=== PATIENT | female | born 1965 | race Caucasian/White ===

== ENCOUNTER 2023-05-23 09:00 | Emergency (ER) | payer MEDICARE, OTHER ==
[~2023-05-23] VITALS: Ht 175.3 cm; Wt 79.4 kg
[~2023-05-23 09:00] MED LIST: ALPR1 PO; DIPH50 PO; ESCI10 PO; FAMO20 PO; FURO40 PO; IBUP200; IBUP800 PO; LASIX; LEVSOD25 PO; METH10 PO; OXYC10ER PO; OXYC5 PO; OXYCODONE; POTASSIUM; TIZA4 PO; WELLBUTRIN; [UNRECOGNIZED DRUG - OTHER]
[2023-05-23 10:29] LABS: BASOPHILS ABSOLUTE AUTO 0.02 K/mm3 (0.00-0.23); BASOPHILS PERCENT AUTO 0 % (0-2); EOSINOPHILS PERCENT AUTO 0 % (0-6); IMMATURE GRAN ABSOLUTE AUTO 0.04 K/mm3 (0.00-0.10); IMMATURE GRAN PERCENT AUTO 0 % (0-1); LYMPHOCYTES ABSOLUTE AUTO 0.78 K/mm3 (0.84-5.20); LYMPHOCYTES PERCENT AUTO 7 % (21-46); MONOCYTES ABSOLUTE AUTO 0.48 K/mm3 (0.16-1.47); MONOCYTES PERCENT AUTO 4 % (4-13); Mean Corpuscular HGB 30.5 pg (26.0-34.0); Mean Corpuscular Volume 90 fL (80-100); Mean Platelet Volume 9.5 fL (9.1-12.4); NEUTROPHILS ABSOLUTE AUTO 9.71 K/mm3 (1.96-9.15); NEUTROPHILS PERCENT AUTO 88 % (41-73); Platelet Count 400 K/mm3 (150-400); RDW Coefficient Variation 12.9 % (11.7-14.2); RDW Standard Deviation 42.2 fL (35.1-46.3); Red Blood Cell Count 5.57 M/mm3 (3.80-5.20); White Blood Cell Count 11.03 K/mm3 (4.00-11.30)
[2023-05-23] MEDS ORDERED: Oxycodone HCl20 M1 PO (10:43)
[2023-05-23] MEDS ORDERED: ARIPIPRAZOLE15 M3 PO (10:43)
[2023-05-23] MEDS ORDERED: ZOLPIDEM TARTRA10 MG PO (10:43)
[2023-05-23] MEDS ORDERED: ESTRADIOL1 M1 PO (10:44)
[2023-05-23] MEDS ORDERED: LISINOPRIL-HCT1 EAC1 PO (10:44)
[2023-05-23 10:46] LABS: Salicylate <1.7 mg/dL (2.8-20.0)
[2023-05-23 10:50] LABS: Alanine Aminotransfer (ALT/SGP 36 U/L (12-78); Albumin, Blood 4.7 g/dL (3.4-5.0); Alk Phos 51 U/L (50-136); Anion Gap 10 mmol/L (6-16); Aspartate Aminotrans (AST/SGOT 60 U/L (12-37); Bilirubin, Total 0.5 mg/dL (0.1-1.0); Blood Urea Nitrogen 27 mg/dL (8-24); Bun/Creatinine Ratio 23.1 (12.0-20.0); CO2, Blood 25 mmol/L (21-32); Chloride, Blood 108 mmol/L (98-108); Creatinine, Blood 1.17 mg/dL (0.40-1.00); Globulin, Blood 4.6 g/dL (2.2-4.0); Glomerular Filtration Rate 55 (60-); Glucose, Blood 121 mg/dL (70-99); Potassium, Blood 3.8 mmol/L (3.5-5.5); Sodium, Blood 143 mmol/L (136-145); Total Protein, Blood 9.3 g/dL (6.4-8.2)
[2023-05-23 10:51] LABS: Acetaminophen, Random <2.0 ug/mL (10.0-30.0); Ethanol (Alcohol), Blood, Med <3 mg/dL
[2023-05-23 12:00] VITALS: BP 180/101
[2023-05-23] MEDS ORDERED: NARCAN4 M1 (12:09)
[2023-05-23] MEDS ORDERED: ONDA4ODT MM (12:09)
== END 2023-05-23 12:54 | disposition home or self-care (01) ==
LOC: ER 09:00
PROVIDERS: Physician Assistant
DX: F11.20 Opioid dependence, uncomplicated (principal); E86.0 Dehydration
CPT/HCPCS: 80053; 85025; 96360; 96361; 99284-25; A9270; G0480; J7030

== ENCOUNTER 2023-05-28 12:28 | Inpatient (IN) | payer MEDICARE, OTHER ==
[~2023-05-28] VITALS: Ht 165.1 cm; Wt 76.0 kg
[~2023-05-28 12:28] MED LIST changes: +ARIPIPRAZOLE15 M3 PO; +ESTRADIOL1 M1 PO; +LISINOPRIL-HCT1 EAC1 PO; +NARCAN4 M1; +ONDA4ODT MM; +Oxycodone HCl20 M1 PO; +ZOLPIDEM TARTRA10 MG PO
[2023-05-28 13:27] LABS: BASOPHILS ABSOLUTE AUTO 0.02 K/mm3 (0.00-0.23); BASOPHILS PERCENT AUTO 0 % (0-2); EOSINOPHILS PERCENT AUTO 0 % (0-6); Hematocrit 47.8 % (33.0-51.0); Hemoglobin 16.5 g/dL (11.5-16.0); IMMATURE GRAN ABSOLUTE AUTO 0.11 K/mm3 (0.00-0.10); IMMATURE GRAN PERCENT AUTO 1 % (0-1); LYMPHOCYTES ABSOLUTE AUTO 1.35 K/mm3 (0.84-5.20); LYMPHOCYTES PERCENT AUTO 7 % (21-46); MONOCYTES ABSOLUTE AUTO 1.49 K/mm3 (0.16-1.47); MONOCYTES PERCENT AUTO 8 % (4-13); Mean Corpuscular HGB 31.7 pg (26.0-34.0); Mean Corpuscular HGB Conc 34.5 g/dL (31.5-36.5); Mean Corpuscular Volume 92 fL (80-100); Mean Platelet Volume 10.3 fL (9.1-12.4); NEUTROPHILS ABSOLUTE AUTO 15.91 K/mm3 (1.96-9.15); NEUTROPHILS PERCENT AUTO 84 % (41-73); Platelet Count 271 K/mm3 (150-400); RDW Coefficient Variation 13.5 % (11.7-14.2); RDW Standard Deviation 46.2 fL (35.1-46.3); White Blood Cell Count 18.88 K/mm3 (4.00-11.30)
[2023-05-28 13:43] LABS: Source, Urine Clean Catch
[2023-05-28 13:48] LABS: Appearance, Urine Cloudy (Clear); Bilirubin, Urine Neg (Neg); Blood, Urine 4+ (Neg); Color, Urine Yellow (P-Yellow); Glucose Qualitative, Urine Neg (Neg); Ketones, Urine Neg (Neg); Leukocyte Esterase, Urine 1+ (Neg); Nitrite, Urine Pos (Neg); Protein, Urine 2+ (Neg); Specific Gravity, Urine 1.025 (1.003-1.022); Urobilinogen, Urine NORM (Normal)
[2023-05-28 13:58] LABS: Amorphous Light (0-Heavy); Bacteria Many /hpf
[2023-05-28 13:59] LABS: Alanine Aminotransfer (ALT/SGP 139 U/L (12-78); Alk Phos 37 U/L (50-136); Anion Gap 6 mmol/L (6-16); Aspartate Aminotrans (AST/SGOT 240 U/L (12-37); Bilirubin, Total 0.6 mg/dL (0.1-1.0); Blood Urea Nitrogen 75 mg/dL (8-24); Bun/Creatinine Ratio 38.3 (12.0-20.0); CO2, Blood 26 mmol/L (21-32); Calcium, Blood 9.8 mg/dL (8.5-10.1); Chloride, Blood 118 mmol/L (98-108); Creatinine, Blood 1.96 mg/dL (0.40-1.00); Ethanol (Alcohol), Blood, Med <3 mg/dL; Globulin, Blood 4.2 g/dL (2.2-4.0); Glomerular Filtration Rate 29 (60-); Glucose, Blood 138 mg/dL (70-99); Potassium, Blood 4.4 mmol/L (3.5-5.5); Sodium, Blood 150 mmol/L (136-145); Total Protein, Blood 8.2 g/dL (6.4-8.2)
[2023-05-28 13:59] LABS: Squamous Epithelial Cells Few /hpf (Few)
[2023-05-28 14:01] LABS: U Amphetamine Screen Not Detected; U Barbituate Screen Not Detected; U Benzodiazapine Screen Not Detected; U Buprenorphine Screen Not Detected; U Cannabinoids Screen Not Detected; U Cocaine Screen Not Detected; U Methadone Screen Not Detected; U Methamphetamine Screen Not Detected; U Opiates Screen Not Detected; U Oxycodone Screen Not Detected; U Phencyclidine Screen Not Detected; U Propoxyphene Screen Not Detected
[2023-05-28 15:51] LABS: RBC Count, CSF 0 /mm3 (0-0); RBC Count, CSF 1 /mm3 (0-0); WBC Count, CSF 0 /mm3 (0-5); WBC Count, CSF 1 /mm3 (0-5)
[2023-05-28 15:52] LABS: Appearance, CSF Clear (Clear); Color, CSF No Color (No Color)
--- NOTE | 2023-05-28 16:23 | NUR ---
CALL TO ER FOR REPORT ON THIS PATIENT. NURSE NOT AVAILABLE WILL CALL BACK.
[2023-05-28 16:55] LABS: Cryptococcus Neoformans/Gattii Not Detected (NOT DETECT); Enterovirus Not Detected (NOT DETECT); Escherichia Coli K1 Not Detected (NOT DETECT); Haemophilus Influenza Not Detected (NOT DETECT); Herpes Simplex Virus 1 Not Detected (NOT DETECT); Herpes Simplex Virus 2 Not Detected (NOT DETECT); Human Herpesvirus 6 Not Detected (NOT DETECT); Human Parechovirus Not Detected (NOT DETECT); Listeria Monocytogenes Not Detected (NOT DETECT); Neisseria Meningitidis Not Detected (NOT DETECT); Streptococcus Agalactiae Not Detected (NOT DETECT); Streptococcus Pneumoniae Not Detected (NOT DETECT); Varicella Zoster Virus Not Detected (NOT DETECT)
[2023-05-28 17:15] VITALS: BP 174/100
[2023-05-28 17:35] LABS: Free Thyroxine 1.44 ng/dL (0.70-1.60)
[2023-05-28 17:38] LABS: Thyroid Stimulating Hormone 0.892 uIU/mL (0.360-4.800)
[2023-05-28 18:53] LABS: Anti-Xa UFH, PHA Monitoring <0.10 IU/mL; International Normalized Ratio 1.15
[2023-05-28 19:30] VITALS: BP 176/103
[2023-05-28 21:56] VITALS: BP 125/63
--- NOTE | 2023-05-28 23:06 | NUR ---
CALLED HOSPITALIST INFORMED HIM OF TROPONIN LEVEL TRENDING UP, 7 BEAT RUN OF VTACH, AND PRN APRESOLINE ADMINISTRATION FOR HTN. RECEIVED NEW PRN HTN MEDICATION ORDER, SEE EMAR.
[2023-05-29 02:23] VITALS: BP 155/80
[2023-05-29 02:23] LABS: Albumin, Blood 3.3 g/dL (3.4-5.0); Bilirubin, Total 0.5 mg/dL (0.1-1.0); Bun/Creatinine Ratio 42.1 (12.0-20.0); Calcium, Blood 8.8 mg/dL (8.5-10.1); Creatinine, Blood 1.45 mg/dL (0.40-1.00); Globulin, Blood 3.4 g/dL (2.2-4.0); Magnesium, Blood 2.8 mg/dL (1.6-2.4); Potassium, Blood 3.8 mmol/L (3.5-5.5); Total Protein, Blood 6.7 g/dL (6.4-8.2)
--- NOTE | 2023-05-29 04:07 | NUR ---
SHIFT SUMMARY ADMITTED FOR ACUTE ENCEPHALOPATHY/UTI. FULL CODE. PLAN IS FOR IV ANTIB RX, AND ST SWALLOW EVAL WHEN POSSIBLE. LUMBAR PUNCTURE RESULTS NEGATIVE. TOX SCREEN NEGATIVE. TELEMETRY: NSR @ 96 BPM. HEPARIN DRIP INFUSING - PHARMACY MANAGED. 07/20 NS INFUSING ORDERED. NA+ LAB IS NOW RISEN FROM 150 TO 153. SHE IS NON-VERBAL. SHE DOES NOT FOLLOW COMMANDS OR RESPOND. SHE DOES LOOK AT THE INTERVIEWER, BUT NOTHING MORE. TROPONIN HAS RISEN FROM [address] WE ARE Q2 TURNING HER, SHE IS BEDRIDDEN.
[2023-05-29 07:27] VITALS: BP 152/80
[2023-05-29 08:25] LABS: BASOPHILS ABSOLUTE AUTO 0.02 K/mm3 (0.00-0.23); BASOPHILS PERCENT AUTO 0 % (0-2); EOSINOPHILS PERCENT AUTO 0 % (0-6); Hematocrit 42.1 % (33.0-51.0); Hemoglobin 13.8 g/dL (11.5-16.0); IMMATURE GRAN ABSOLUTE AUTO 0.05 K/mm3 (0.00-0.10); IMMATURE GRAN PERCENT AUTO 0 % (0-1); LYMPHOCYTES ABSOLUTE AUTO 1.48 K/mm3 (0.84-5.20); LYMPHOCYTES PERCENT AUTO 11 % (21-46); MONOCYTES PERCENT AUTO 6 % (4-13); Mean Corpuscular HGB 30.6 pg (26.0-34.0); Mean Corpuscular HGB Conc 32.8 g/dL (31.5-36.5); Mean Corpuscular Volume 93 fL (80-100); Mean Platelet Volume 10.8 fL (9.1-12.4); NEUTROPHILS ABSOLUTE AUTO 10.82 K/mm3 (1.96-9.15); NEUTROPHILS PERCENT AUTO 82 % (41-73); Platelet Count 194 K/mm3 (150-400); RDW Coefficient Variation 13.8 % (11.7-14.2); RDW Standard Deviation 46.9 fL (35.1-46.3); Red Blood Cell Count 4.51 M/mm3 (3.80-5.20); White Blood Cell Count 13.17 K/mm3 (4.00-11.30)
[2023-05-29 09:31] LABS: Bun/Creatinine Ratio 44.8 (12.0-20.0); Calcium, Blood 8.9 mg/dL (8.5-10.1); Creatinine, Blood 1.34 mg/dL (0.40-1.00); Potassium, Blood 3.8 mmol/L (3.5-5.5)
[2023-05-29 12:33] VITALS: BP 157/88
[2023-05-29 16:15] VITALS: BP 161/88
--- NOTE | 2023-05-29 19:32 | NUR ---
SHIFT SUMMARY PT OPEN EYES SPONTANEOUSLY, APPEARS TO BE TRACKING SOMETIMES. ABLE TO WIGGLE TOES AND FINGERS BY COMMAND. SHAKE HEAD YES AND NO TO MOST QUESTIONS. SHOOK HEAD "NO" WHEN I ASKED IF SHE HAD ANY PAIN. S/O BROUGHT IN A FEW OF THE MEDICAITIONS THAT WERE LISTED ON MED REC. IT APPEARS THAT SHE HAS NOT BEEN TAKING MOST OF THE REVIEWED MEDICAITONS THE BOTTLE WERE FULL AND NOT REFILLED. S/O STATES THAT HE DOES NOT KNOW WHICH MEDS SHE TAKES REGULARLY. HE REPORTED WAKING MANY TIMES IN THE NIGHT TO FIND PT TAKING PILLS, BUT DID NOT KNOW WHAT OR HOW MUCH. HE STATED THAT HE IS GONE MOST OF THE DAY AND WOULD COME HOME AND FIND PILLS LAYING ON THE GROUND NEXT TO BED, BUT UNSURE OF WHAT PILLS THEY WERE. PT HAD MODERATE AMOUNTS OF FLEM INSIDE MOUTH. ABLE TO SUCTION SOME OUT BUT APPEARS SHE MAY NEED DEEP SUCTION. ORAL CARE PROVIDED. INCONT. BRIEF IN PLACE. PT IS UNABLE TO MAKE NEEDS KNOWN. BED IS IN THE LOWEST POSITION WITH CALL LIGHT IN REACH. BED ALARM ON.
[2023-05-29 19:55] VITALS: BP 151/84
--- NOTE | 2023-05-30 00:16 | NUR ---
PT NOTED TO BE TACHYPNIC AT 26. PT WAS ABLE TO SHAKE HER HEAD, NO, WHEN I ASKED IF SHE WAS IN PAIN. PATIENT SHOOK HER HEAD NO WHEN I ASKED IF SHE WAS HAVING TROUBLE BREATHING. DOES NOT APPEAR LABORED. LUNGS ARE CLEAR AND DIMINISHED IN BASES. PATIENT ON ROOM AIR SATTING ABOVE 92%. OCCASIONAL COUGH BUT NONE NOTED DURING THIS SHIFT SO FAR. SUCTION SET UP AT BEDSIDE. PATIENT APPEARS TO BE RESTING COMFORTABLY WITH HOB SLIGHTLY ELEVATAED. EYES OPEN TO VERBAL STIMULI. REPOSITIN Q2. NOT ABLE TO MAKE NEEDS KNOWN. BED ALARM ON. CALL LIGHT IN REACH
[2023-05-30 03:04] VITALS: BP 145/84
--- NOTE | 2023-05-30 04:06 | NUR ---
SHIFT SUMMARY OPENS EYES SPONTANEOUSLY. ROOM AIR. TACHYPNEA BUT UNLABORED. TAHCYCARDIA 90'S- LOW 100'1. NO FEVERS THIS SHIFT BUT SKIN IS CLAMMY AND FLUSHED TO FACE AND CHEST. HEELS FLOATED AND IN PINK FOAM. REPOSITIONING Q2. MEPILEX TO LEFT ELBOW. UNABLE TO MAKE NEEDS KNOWN. IF GIVEN ENOUGH TIME TO RESPOND CAN SHAKE HEAD NO TO YES/NO QUESTIONS. CAN WIGGLE TOES AND SQUEEZE FIST ON COMMAND. BED LOCKED IN LOW POSITION. BED ALARM ON. CALL LIGHT IN REACH. BILATERAL AC IV'S. DENIES PAIN/TROUBLE BREATHING.
[2023-05-30 06:21] LABS: BASOPHILS ABSOLUTE AUTO 0.01 K/mm3 (0.00-0.23); BASOPHILS PERCENT AUTO 0 % (0-2); EOSINOPHILS ABSOLUTE AUTO 0.01 K/mm3 (0.00-0.68); EOSINOPHILS PERCENT AUTO 0 % (0-6); Hematocrit 42.2 % (33.0-51.0); Hemoglobin 13.5 g/dL (11.5-16.0); IMMATURE GRAN ABSOLUTE AUTO 0.05 K/mm3 (0.00-0.10); IMMATURE GRAN PERCENT AUTO 0 % (0-1); LYMPHOCYTES ABSOLUTE AUTO 1.58 K/mm3 (0.84-5.20); LYMPHOCYTES PERCENT AUTO 13 % (21-46); MONOCYTES ABSOLUTE AUTO 0.62 K/mm3 (0.16-1.47); MONOCYTES PERCENT AUTO 5 % (4-13); Mean Corpuscular HGB 30.3 pg (26.0-34.0); Mean Corpuscular Volume 95 fL (80-100); Mean Platelet Volume 11.3 fL (9.1-12.4); NEUTROPHILS ABSOLUTE AUTO 9.67 K/mm3 (1.96-9.15); NEUTROPHILS PERCENT AUTO 81 % (41-73); Platelet Count 181 K/mm3 (150-400); RDW Coefficient Variation 13.9 % (11.7-14.2); Red Blood Cell Count 4.45 M/mm3 (3.80-5.20); White Blood Cell Count 11.94 K/mm3 (4.00-11.30)
[2023-05-30 06:57] LABS: Albumin, Blood 2.8 g/dL (3.4-5.0); Albumin/Globulin Ratio 0.8 (0.8-1.8); Bilirubin, Direct 0.1 mg/dL (0.0-0.3); Bilirubin, Indirect 0.3 mg/dL (0.1-0.7); Bilirubin, Total 0.4 mg/dL (0.1-1.0); Bun/Creatinine Ratio 40.5 (12.0-20.0); Calcium, Blood 8.6 mg/dL (8.5-10.1); Creatinine, Blood 1.11 mg/dL (0.40-1.00); Globulin, Blood 3.4 g/dL (2.2-4.0); Potassium, Blood 3.8 mmol/L (3.5-5.5); Total Protein, Blood 6.2 g/dL (6.4-8.2)
[2023-05-30 07:26] VITALS: BP 126/84
[2023-05-30 15:31] VITALS: BP 163/86
--- NOTE | 2023-05-30 19:17 | NUR ---
NO ACUTE CHANGES THIS SHIFT. PT CONTINUES TO BE NON VERBAL, ABLE TO WIGGLE FINGERS AND TOES ON COMMAND. SHE TRACKS STAFF AND CAN NOD YES/NO FOR SIMPLE QUESTIONS. SHE WAS LESS INTERACTIVE WITH ME THIS SHIFT THAN YESTERDAY. SHE APPEARS TO BE WITHDRAWN. PT TEARFUL WHEN S/O AT BEDSIDE. UNABLE TO MAKE NEEDS KNOWN. Q2HR POSITIONING. ORAL CARE WITH SUCTION PREFORMED Q4HR. PT NODDED "NO" WHEN ASKED IF SHE WAS IN PAIN.
[2023-05-30 19:53] VITALS: BP 173/93
[2023-05-30 20:30] VITALS: BP 158/95
[2023-05-31 04:04] VITALS: BP 165/94
[2023-05-31 05:44] LABS: BASOPHILS ABSOLUTE AUTO 0.01 K/mm3 (0.00-0.23); BASOPHILS PERCENT AUTO 0 % (0-2); EOSINOPHILS ABSOLUTE AUTO 0.06 K/mm3 (0.00-0.68); EOSINOPHILS PERCENT AUTO 1 % (0-6); Hematocrit 39.8 % (33.0-51.0); Hemoglobin 13.1 g/dL (11.5-16.0); IMMATURE GRAN ABSOLUTE AUTO 0.04 K/mm3 (0.00-0.10); IMMATURE GRAN PERCENT AUTO 0 % (0-1); LYMPHOCYTES ABSOLUTE AUTO 1.42 K/mm3 (0.84-5.20); LYMPHOCYTES PERCENT AUTO 14 % (21-46); MONOCYTES ABSOLUTE AUTO 0.54 K/mm3 (0.16-1.47); MONOCYTES PERCENT AUTO 5 % (4-13); Mean Corpuscular HGB 30.5 pg (26.0-34.0); Mean Corpuscular HGB Conc 32.9 g/dL (31.5-36.5); Mean Corpuscular Volume 93 fL (80-100); NEUTROPHILS ABSOLUTE AUTO 8.24 K/mm3 (1.96-9.15); NEUTROPHILS PERCENT AUTO 80 % (41-73); Platelet Count 149 K/mm3 (150-400); RDW Coefficient Variation 13.2 % (11.7-14.2); RDW Standard Deviation 44.7 fL (35.1-46.3); White Blood Cell Count 10.31 K/mm3 (4.00-11.30)
[2023-05-31 06:11] LABS: Albumin, Blood 2.7 g/dL (3.4-5.0); Albumin/Globulin Ratio 0.8 (0.8-1.8); Bilirubin, Direct 0.2 mg/dL (0.0-0.3); Bilirubin, Indirect 0.2 mg/dL (0.1-0.7); Bilirubin, Total 0.4 mg/dL (0.1-1.0); Bun/Creatinine Ratio 27.3 (12.0-20.0); Calcium, Blood 8.5 mg/dL (8.5-10.1); Creatinine, Blood 0.99 mg/dL (0.40-1.00); Globulin, Blood 3.2 g/dL (2.2-4.0); Phosphorus, Blood 3.2 mg/dL (2.5-4.9); Potassium, Blood 3.3 mmol/L (3.5-5.5); Total Protein, Blood 5.9 g/dL (6.4-8.2)
--- NOTE | 2023-05-31 06:32 | NUR ---
SHIFT SUMMARY ALERT, OPENS EYES SPONTANEOUSLY. ROOM AIR. TRACKS WITH EYES. ABLE TO WIGGLE TOES AND FLEX AND EXTEND FEET. ABLE TO SQUEEZE HANDS AND SLIGHTLY LIFT LEFT ARM OFF OF BED. THIS MORNING ORAL CARE WAS PROVIDED SHE SOUNDED VERY CONGESTED AND HAD A MUCUS PLUG TO BACK OF THROAT. SUCTION PROVIDED, I ASKED IF I COULD SUCTION HER ONE MORE TIME OR IF SHE NEEDED A BREAK AND SHE WAS ABLE TO WHISPER "BREAK" BACK TO ME. REPOSITIONING Q2 HOURS. INCONTINENT BOWEL/BLADDER BRIEF IN PLACE. BEDBOUND DUE TO CATATONIC STATE. D5 INFUSING, PATIENT NPO. WEAK COUGH. UNABLE TO MAKE NEEDS KNOWN. BED LOCKED IN LOW POSITION. BED RAILS UP X3. CALL LIGHT IN REACH. HEELS FLOATED AND IN PINK FOAM. DEPENDENT EDEMA
[2023-05-31 07:24] VITALS: BP 152/85
[2023-05-31 16:13] VITALS: BP 160/91
--- NOTE | 2023-05-31 16:51 | NUR ---
SHIFT SUMMARY PT REMAINS NONVERBAL T/O SHIFT. PT ABLE TO ANSWER SIMPLE QUESTIONS WITH THE SLIGHTEST HEAD NOD OR SHAKE. REMAINS NPO. PHILIPP NGT PLACED TODAY FOR FEEDING. FEEDINGS STARTED AT 1430 TODAY. PT DENIES ABD PAIN AND APPEARS TO BE TOLERATING FEEDS WELL SO FAR. IV FLUIDS DCED. TOUNGUE NOTICED TO BE VERY WHITE, CONCERN FOR THRUSH RELAYED TO DR. VELA. ORDER FOR DIFLUCAN PLACED. PT VOIDING WELL INCONTINENTLY. DENIES PAIN T/O SHIFT. EEG ORDERED BUT WILL BE COMPLETED TOMORROW AT 0500 PER ARABIC PROFESSORFELIPA LEMUS. PSYCH CONSULTED FOR CATATONIA. PLAN TO START ATIVAN Q8 AFTER EEG IS COMPLETED TO DETERMINE DIAGNOSIS PER PSYCH. NO OTHER ACUTE CHANGES IN ASSESSMENT AT THIS TIME. VS REVIEWED. Q2 REPOSITIONS. PT RESTING IN BED WITH FAMILY AT BEDSIDE CURRENTLY. FAMILY UPDATED ON PLAN OF CARE AT THIS TIME. CALL LIGHT IN REACH.
[2023-05-31 20:56] VITALS: BP 158/82
--- NOTE | 2023-06-01 04:40 | NUR ---
Shift Summary Pt mentation difficult to assess, she nods yes or no to most questions but won't answer some. She is unable to move except her eyes, head, and some movement in fingers/toes. She states no pain or nausea. Her lungs are wet sounding but she is unable to cough and refuses suction. Placed a purewick which is working well and keeping pt dry. Q2 turns. Dobhoff running feeding at 60ml/hr and flushing every 4 hours with 90ml water.
[2023-06-01 06:01] LABS: BASOPHILS ABSOLUTE AUTO 0.01 K/mm3 (0.00-0.23); BASOPHILS PERCENT AUTO 0 % (0-2); EOSINOPHILS PERCENT AUTO 1 % (0-6); Hematocrit 39.9 % (33.0-51.0); Hemoglobin 13.3 g/dL (11.5-16.0); IMMATURE GRAN ABSOLUTE AUTO 0.04 K/mm3 (0.00-0.10); IMMATURE GRAN PERCENT AUTO 0 % (0-1); LYMPHOCYTES ABSOLUTE AUTO 1.16 K/mm3 (0.84-5.20); LYMPHOCYTES PERCENT AUTO 12 % (21-46); MONOCYTES ABSOLUTE AUTO 0.55 K/mm3 (0.16-1.47); MONOCYTES PERCENT AUTO 6 % (4-13); Mean Corpuscular HGB 30.4 pg (26.0-34.0); Mean Corpuscular HGB Conc 33.3 g/dL (31.5-36.5); Mean Corpuscular Volume 91 fL (80-100); Mean Platelet Volume 11.4 fL (9.1-12.4); NEUTROPHILS ABSOLUTE AUTO 7.89 K/mm3 (1.96-9.15); NEUTROPHILS PERCENT AUTO 81 % (41-73); Platelet Count 164 K/mm3 (150-400); RDW Coefficient Variation 13.2 % (11.7-14.2); RDW Standard Deviation 44.3 fL (35.1-46.3); Red Blood Cell Count 4.37 M/mm3 (3.80-5.20); White Blood Cell Count 9.75 K/mm3 (4.00-11.30)
[2023-06-01 06:27] LABS: Albumin, Blood 2.6 g/dL (3.4-5.0); Anion Gap 5 mmol/L (6-16); Blood Urea Nitrogen 29 mg/dL (8-24); Bun/Creatinine Ratio 33.7 (12.0-20.0); CO2, Blood 26 mmol/L (21-32); Calcium, Blood 8.4 mg/dL (8.5-10.1); Chloride, Blood 112 mmol/L (98-108); Creatinine, Blood 0.86 mg/dL (0.40-1.00); Glomerular Filtration Rate 79 (60-); Glucose, Blood 124 mg/dL (70-99); Phosphorus, Blood 3.3 mg/dL (2.5-4.9); Potassium, Blood 3.6 mmol/L (3.5-5.5); Sodium, Blood 143 mmol/L (136-145)
[2023-06-01 07:29] VITALS: BP 167/82
--- NOTE | 2023-06-01 11:00 | NUR ---
IMPROVEMENT AFTER FIRST ATIVAN DOSE FIRST ATIVAN DOSE GIVEN THIS AM, APPROX AN HOUR AFTER PATIENT APPEARS TO HAVE IMPROVMENTS WITH EXTREMETY STRNEGTH. PT ABLE TO MOVE HER FEET AND BARBER STYLIST ARE STRONGER THAN EARLIER THIS AM. PT IS TRACKING WITH EYE AND MOVING HER HEAD EASIER AND FASTER THAN BEFORE. PT HAS SINCE ALSO SAID "YEAH" AND "MAYBE" VERY CLEARLY. SECOND DOSE OF ATIVEN JUST GIVEN.
[2023-06-01 16:05] VITALS: BP 141/83
--- NOTE | 2023-06-01 18:09 | NUR ---
SHIFT SUMMARY PT RESPONDING WELL TO THE IM ATIVAN. SEE PREVIOUS NOTES. PT VERBALIZING BETTER, ABLE TO TELL ME HER BOYFRIENDS NAME WHEN ASKED WHO HE WAS. PT ABLE TO LIFT ARMS SLIGHTLY AND MOVE HANDS AROUND BETTER WITH MEANING. PT REFUSING ORAL CARE T/O DAY AFTER MULTIPLE ATTEMPTS. TOLERATING CONTINUOUS FEEDS THROUGH DOBHOFF. NO OTHER ACUTE CHANGES IN ASSESSMENT AT THIS TIME. VS REVIEWED. CALL LIGHT IN REACH. REPOSITIONING Q2 HOURS. PURE WIK IN PLACE AND WORKING WELL. PT HAD A SMEAR OF BM TODAY. NO SUBSTANCIAL BM YET.
[2023-06-01 19:48] VITALS: BP 139/76
[2023-06-02] MEDS ORDERED: OMEP20ER PO (00:16)
[2023-06-02 03:16] VITALS: BP 128/70
--- NOTE | 2023-06-02 05:23 | NUR ---
Shift Summary Pt rcving Q6 scheduled IM Ativan. She has more muscle tone than last night and is able to provide one word answers at time. She is lethargic and somnolent, sleeping well t/o the the night. Purewick in place with good urine output. Pt states no pain or nausea. Rcving nutrition through dobhoff tube at 60ml/hr. Pt did try to get out of bed at one point during the night and had to be reminded that she is extremely weak and cannot walk at this time.
[2023-06-02 07:28] VITALS: BP 134/86
[2023-06-02 07:34] LABS: Alanine Aminotransfer (ALT/SGP 109 U/L (12-78); Albumin, Blood 2.7 g/dL (3.4-5.0); Albumin/Globulin Ratio 0.8 (0.8-1.8); Alk Phos 34 U/L (50-136); Anion Gap 6 mmol/L (6-16); Aspartate Aminotrans (AST/SGOT 83 U/L (12-37); Bilirubin, Direct <0.1 mg/dL (0.0-0.3); Bilirubin, Indirect Unable to Calculate mg/dL (0.1-0.7); Bilirubin, Total 0.2 mg/dL (0.1-1.0); Blood Urea Nitrogen 27 mg/dL (8-24); Bun/Creatinine Ratio 36.7 (12.0-20.0); CO2, Blood 27 mmol/L (21-32); Calcium, Blood 8.7 mg/dL (8.5-10.1); Chloride, Blood 104 mmol/L (98-108); Creatinine, Blood 0.74 mg/dL (0.40-1.00); Globulin, Blood 3.6 g/dL (2.2-4.0); Glomerular Filtration Rate 95 (60-); Glucose, Blood 132 mg/dL (70-99); Phosphorus, Blood 3.3 mg/dL (2.5-4.9); Potassium, Blood 3.8 mmol/L (3.5-5.5); Sodium, Blood 137 mmol/L (136-145); Total Protein, Blood 6.3 g/dL (6.4-8.2)
[2023-06-02 11:21] VITALS: BP 135/82
--- NOTE | 2023-06-02 17:36 | NUR ---
SHIFT SUMMARY- PT WAS UNRESPONSIVE AND LETHARGIC THIS MORNING. SHE IS RECIEVING IM ATIVAN Q6 TO TREAT SUSPECTED CATITONIA. FREQUENCY WAS CHANGED TO Q8 TODAY. PT EYES WERE OPEN FOR A BIT AROUND 1600. PT WAS ABLE, AT THAT TIME TO ATTEMPT TO SQUEEZE FINGERS, HER EYES WERE TRACKING AND SHE WAS ABLE TO FOLLOW DIRECTIONS TO LOOK IN A SET DIRECTION AND NOT AT THE LIGHT. PUPIL RESPONSE WAS BRISK AT THIS TIME. PT WAS ABLE TO GIVE A SLIGHT HEAD NOD IN THE AFFIRMATIVE WHEN ASKED A QUESTION. THIS IS A COMPLETE CHANGE FROM EARLIER IN THE DAY. IV ATIVAN WAS GIVEN AT 1700. PT SITTING UP IN BED, CALL LIGHT IN REACH, THOUGH THE PT IS UNABLE TO CALL. FAMILY HAS BEEN AT THE BEDSIDE OFF AND ON T/O THE DAY. CURRENTLY THEY ARE AT THE BEDSIDE.
[2023-06-02 20:40] VITALS: BP 113/74
--- NOTE | 2023-06-03 04:21 | NUR ---
SHIFT SUMMARY ADMITTED FOR ACUTE ENCEPHALITIS. FULL CODE. PALLIATIVE CARE CONSULT. CONTINUOUS DOBHOFF FEEDING. IV ANTIB RX ARE SCHEDULED. SHE IS UNRESPONSIVE, ALTHOUGH SHE WILL LOOK AT THE INTERVIEWER AND SQUEEZE YOUR HAND WHEN PROMPTED. PUREWICK IN PLACE. TELEMETRY: NSR @ 95 BPM. SHE IS ON RA. PSYCHOLOGY CONSULT IS DR. SALAZAR. HX OF ALCOHOL AND PILL ABUSE. IM ATIVAN IS SCHEDULED, SEE EMAR AND PHYSICIAN'S REPORT.
[2023-06-03 05:38] LABS: BASOPHILS ABSOLUTE AUTO 0.01 K/mm3 (0.00-0.23); BASOPHILS PERCENT AUTO 0 % (0-2); EOSINOPHILS ABSOLUTE AUTO 0.08 K/mm3 (0.00-0.68); EOSINOPHILS PERCENT AUTO 1 % (0-6); Hematocrit 40.5 % (33.0-51.0); Hemoglobin 13.6 g/dL (11.5-16.0); IMMATURE GRAN ABSOLUTE AUTO 0.08 K/mm3 (0.00-0.10); IMMATURE GRAN PERCENT AUTO 1 % (0-1); LYMPHOCYTES ABSOLUTE AUTO 1.33 K/mm3 (0.84-5.20); LYMPHOCYTES PERCENT AUTO 12 % (21-46); MONOCYTES ABSOLUTE AUTO 0.79 K/mm3 (0.16-1.47); MONOCYTES PERCENT AUTO 7 % (4-13); Mean Corpuscular HGB 30.7 pg (26.0-34.0); Mean Corpuscular HGB Conc 33.6 g/dL (31.5-36.5); Mean Corpuscular Volume 91 fL (80-100); Mean Platelet Volume 10.8 fL (9.1-12.4); NEUTROPHILS ABSOLUTE AUTO 9.11 K/mm3 (1.96-9.15); NEUTROPHILS PERCENT AUTO 80 % (41-73); Platelet Count 259 K/mm3 (150-400); RDW Coefficient Variation 13.2 % (11.7-14.2); RDW Standard Deviation 44.1 fL (35.1-46.3); Red Blood Cell Count 4.43 M/mm3 (3.80-5.20)
[2023-06-03 06:24] VITALS: BP 129/80
[2023-06-03 06:28] LABS: Albumin, Blood 2.9 g/dL (3.4-5.0); Albumin/Globulin Ratio 0.8 (0.8-1.8); Bilirubin, Total 0.2 mg/dL (0.1-1.0); Bun/Creatinine Ratio 43.3 (12.0-20.0); Calcium, Blood 9.1 mg/dL (8.5-10.1); Creatinine, Blood 0.72 mg/dL (0.40-1.00); Globulin, Blood 3.7 g/dL (2.2-4.0); Potassium, Blood 3.8 mmol/L (3.5-5.5); Total Protein, Blood 6.6 g/dL (6.4-8.2)
[2023-06-03 07:22] VITALS: BP 128/89
--- NOTE | 2023-06-03 15:44 | NUR ---
SHIFT SUMMARY- PT ALERT TODAY OFF AND ON. NON-VERBAL BUT ABLE TO NOD AND SHAKE HER HEAD. HER STORE RECEIVING CLERK ARE WEAK BUT SHE IS ABLE TO MIRROR SILVERER WITH BOTH HANDS. FREQUENT REPOSITIONING TO PREVENT SKIN BREAKDOWN. CHANGED SOME ORDERS. PT PLACED ON STEROID TREATMENT TODAY, BG CHECKS ORDERED Q6 WITH INSULIN COVERAGE IF NEEDED. DOBHOFF IN PLACE CONTINUIOUS TUBE FEEDING AT 60ML/HR WITH A Q4H FLUSH OF 95ML. MEDS ARE BEING ADMINISTERED THROUGH IT. IV IN THE RIGHT WRIST IS PATENT AND SL AT THIS TIME. PT IN BED, CALL LIGHT I REACH NO S&S OF DISTRESS AT THIS TIME. WILL CTM AND PASS ON TO NIGHT RN IN BEDSIDE REPORT.
[2023-06-03 16:12] VITALS: BP 128/65
[2023-06-03 21:16] VITALS: BP 138/81
[2023-06-04 02:19] VITALS: BP 142/81
--- NOTE | 2023-06-04 04:15 | NUR ---
SHIFT SUMMARY ADMITTED FOR ENCEPHALITIS. FULL CODE. IV ANTIB RX ARE SCHEDULED, ARE STEROID INFUSIONS. UNCERTAIN OF CAUSE OF AMS. CONTINUOUS TUBE FEEDING IN PLACE VIA DOBHOFF. IM ATIVAN IS SCHEDULED. PSYCH CONSULT IS DR. SALAZAR. TELEMETRY: NSR @ [address] NO CHANGE IN MENTATION THIS SHIFT. SHE CAN SQUEEZE YOUR HAND AND MOVE HER ARMS. SHE CAN TRACK YOU WITH HER EYES AND NOD OR SHAKE HER HEAD. HX OF ALCOHOL & PRESCRIPTION/NON-PRESCRIPTION OVERUSE. Q6 CBG'S.
[2023-06-04 05:45] LABS: BASOPHILS ABSOLUTE AUTO 0.01 K/mm3 (0.00-0.23); BASOPHILS PERCENT AUTO 0 % (0-2); EOSINOPHILS PERCENT AUTO 0 % (0-6); Hematocrit 40.9 % (33.0-51.0); IMMATURE GRAN ABSOLUTE AUTO 0.08 K/mm3 (0.00-0.10); IMMATURE GRAN PERCENT AUTO 1 % (0-1); LYMPHOCYTES ABSOLUTE AUTO 0.57 K/mm3 (0.84-5.20); LYMPHOCYTES PERCENT AUTO 5 % (21-46); MONOCYTES ABSOLUTE AUTO 0.26 K/mm3 (0.16-1.47); MONOCYTES PERCENT AUTO 2 % (4-13); Mean Corpuscular HGB 30.7 pg (26.0-34.0); Mean Corpuscular HGB Conc 34.2 g/dL (31.5-36.5); Mean Corpuscular Volume 90 fL (80-100); Mean Platelet Volume 10.5 fL (9.1-12.4); NEUTROPHILS ABSOLUTE AUTO 11.12 K/mm3 (1.96-9.15); NEUTROPHILS PERCENT AUTO 92 % (41-73); Platelet Count 292 K/mm3 (150-400); RDW Coefficient Variation 12.9 % (11.7-14.2); RDW Standard Deviation 42.1 fL (35.1-46.3); Red Blood Cell Count 4.56 M/mm3 (3.80-5.20); White Blood Cell Count 12.04 K/mm3 (4.00-11.30)
[2023-06-04 06:07] LABS: Albumin, Blood 2.8 g/dL (3.4-5.0); Albumin/Globulin Ratio 0.7 (0.8-1.8); Bilirubin, Total 0.3 mg/dL (0.1-1.0); Bun/Creatinine Ratio 47.9 (12.0-20.0); Calcium, Blood 9.3 mg/dL (8.5-10.1); Creatinine, Blood 0.77 mg/dL (0.40-1.00); Globulin, Blood 4.3 g/dL (2.2-4.0); Potassium, Blood 4.3 mmol/L (3.5-5.5); Total Protein, Blood 7.1 g/dL (6.4-8.2)
[2023-06-04 07:32] VITALS: BP 137/89
[2023-06-04 15:01] VITALS: BP 134/73
--- NOTE | 2023-06-04 17:16 | NUR ---
PT IS ALERT. OPENS EYES TO VERAL STIMULI, PT REMAINS NON VERBAL BUT DOES SHAKE HER HEAD YES AND NO. PT IS ABLE TO MASTER MECHANIC AND MOVE HER LEGS SLIGHTLY ON COMMAND. PT IS TOLERATING CONTINUOS TUBE FEED AT GOAL RATE OF 60 ML/HR. PT WAS REPOSTIONED T/O THE DAY AND GIVEN A BED BATH TODAY. PTS HAS BEEN IN TO SEE HER. CALL LIGHT IN REACH BED IN THE LOW POSITION
[2023-06-04 20:15] VITALS: BP 138/77
[2023-06-05 03:52] VITALS: BP 140/77
[2023-06-05 05:49] LABS: BASOPHILS ABSOLUTE AUTO 0.01 K/mm3 (0.00-0.23); BASOPHILS PERCENT AUTO 0 % (0-2); EOSINOPHILS PERCENT AUTO 0 % (0-6); Hemoglobin 13.1 g/dL (11.5-16.0); IMMATURE GRAN PERCENT AUTO 1 % (0-1); LYMPHOCYTES ABSOLUTE AUTO 0.91 K/mm3 (0.84-5.20); LYMPHOCYTES PERCENT AUTO 6 % (21-46); MONOCYTES ABSOLUTE AUTO 1.16 K/mm3 (0.16-1.47); MONOCYTES PERCENT AUTO 7 % (4-13); Mean Corpuscular HGB Conc 34.5 g/dL (31.5-36.5); Mean Corpuscular Volume 90 fL (80-100); NEUTROPHILS ABSOLUTE AUTO 13.86 K/mm3 (1.96-9.15); NEUTROPHILS PERCENT AUTO 86 % (41-73); Platelet Count 373 K/mm3 (150-400); RDW Coefficient Variation 12.9 % (11.7-14.2); RDW Standard Deviation 42.3 fL (35.1-46.3); Red Blood Cell Count 4.22 M/mm3 (3.80-5.20); White Blood Cell Count 16.14 K/mm3 (4.00-11.30)
[2023-06-05 06:23] LABS: Albumin, Blood 2.8 g/dL (3.4-5.0); Albumin/Globulin Ratio 0.7 (0.8-1.8); Bilirubin, Total 0.3 mg/dL (0.1-1.0); Bun/Creatinine Ratio 57.1 (12.0-20.0); Calcium, Blood 9.2 mg/dL (8.5-10.1); Creatinine, Blood 0.77 mg/dL (0.40-1.00); Globulin, Blood 3.9 g/dL (2.2-4.0); Potassium, Blood 4.3 mmol/L (3.5-5.5); Total Protein, Blood 6.7 g/dL (6.4-8.2)
[2023-06-05 07:31] VITALS: BP 133/82
[2023-06-05 15:15] VITALS: BP 137/69
--- NOTE | 2023-06-05 18:48 | NUR ---
SUMMARY- NO ACUTE EVENTS THIS SHIFT. PT VERBALIZED MULTIPLE SHORT SENTENCES THIS SHIFT. PT ALSO FLEXED HER BILAT KNEES STRAIGHT UP IN BED BY HELSELF.
[2023-06-05 19:34] VITALS: BP 147/82
[2023-06-06 03:32] VITALS: BP 128/71
--- NOTE | 2023-06-06 04:06 | NUR ---
SHIFT SUMMARY PATIENT A/O TO SELF, MOSTLY NON-VERBAL. DOES RESPOND TO SIMPLE YES/NO QUESTIONS. ASLEEP OFF AND ON THROUGHOUT MOST OF SHIFT. DOBHOFF NG TUBE IN PLACE, RECEIVING JEVITY 1.2 CONTINUOUS AT 60mL/HR, AT GOAL RATE, TOLERATING WELL. NO ACUTE CHANGES NOTED OVERNIGHT. BED LOCKED, CALL LIGHT WITHIN REACH.
[2023-06-06 07:54] VITALS: BP 131/81
[2023-06-06 15:20] VITALS: BP 129/70
--- NOTE | 2023-06-06 18:01 | NUR ---
SUMMARY- NO ACUTE EVENTS THIS SHIFT. NO CHANGES IN PT. PT STILL ABLE TO ANSWER YES OR NO QUESTIONS AND SPEAK/ANSWER IN SHORT SENTENCES. PT ABLE TO MOVE FINGERS AND TOES MINIMALLY, WELL FLEX BILAT LEGS IN BED.
[2023-06-06 19:42] VITALS: BP 133/75
[2023-06-07 03:24] VITALS: BP 144/80
--- NOTE | 2023-06-07 04:54 | NUR ---
PT LAYING IN BED WITH HEAD UP 30 DEGREES- DUBHOFF IN PLACE - FEEDING PUMP AT 60ML/HR WITH BOLUS WATER SCHEDULED- PT ABLE TO ANSWER A COUPLE QUESTIONS YES AND NO- PT'S S/O IN AT BEDSIDE "THERESE"- GAVE SCHEDULED ATIVAN IM- PT TOLERATED WELL- PT REPOSITIONED T/O NIGHT, PUREWICK IN PLACE, PT HEAD KEPT AT 30 DEGREE T/O NIGHT- BED LOW POSITION, CALL LIGHT WITHIN REACH
[2023-06-07 07:55] VITALS: BP 136/72
--- NOTE | 2023-06-07 11:20 | NUR ---
INCREASED WATER FLUSH TO 150ML Q 4 HRS ON KANGAROO PUMP.
[2023-06-07 14:11] LABS: THYROGLOBULIN ANTIBODY <1.0 IU/mL (0.0-0.9); THYROID PEROXIDASE (TPO) AB 12 IU/mL (0-34)
[2023-06-07 16:48] VITALS: BP 127/72
--- NOTE | 2023-06-07 18:46 | NUR ---
SUMMARY- PT IS NOW EATING MINIMALLY WITH PUREED FOODS AND THIN LIQUIDS. PT ATE 25% OF DINNER. PT CAN RAISE HER RIGHT ARM NOW, WHICH IS AN IMPROVEMENT IN THE PAST 3 DAYS. PT STILL SPEAKING IN SORT SENTENCES. ALL KANGAROO TUBING CHANGED THIS SHIFT.
[2023-06-07 21:56] VITALS: BP 141/83
--- NOTE | 2023-06-08 03:20 | NUR ---
SHIFT SUMMARY A/OX2. ROOM AIR. TUBE FEEDINGS THROUGH PHILIPP RUNNING AT GOAL RATE OF 60 ML/HR WITH 150 ML FLUSHES Q4 HOURS. PATIENT HOB AT 30. DENIES NAUSEA. Q2 TURNING. ATTENDS IN PLACE WITH ProjectioneeringADRIENCK. PT ABLE TO ANSWER QUESTIONS APPROPRIATELY WITH 1-2 WORDS. OTHERWISE IS WITHDRAWN AND NEURTRAL. WEAK BARIATRIC NURSE BILATERALLY. CAN WIGGLE TOES ON COMMAND AND SLIGHTLY FLEX LEGS BILAT AT THE KNEES. PATIENT DENIES PAIN. APPEARS COMFORTABLE. UNABLE TO MAKE NEEDS KNOWN. CALL LIGHT IN REACH. BED LOCKED IN LOW POSITION. HEELS ELEVATED ON PILLOWS. SCD'S ON. NO CONCERNS FROM PATIENT BEFORE LEAVING ROOM
[2023-06-08 05:02] VITALS: BP 140/84
[2023-06-08 05:43] LABS: BASOPHILS ABSOLUTE AUTO 0.01 K/mm3 (0.00-0.23); BASOPHILS PERCENT AUTO 0 % (0-2); EOSINOPHILS ABSOLUTE AUTO 0.05 K/mm3 (0.00-0.68); EOSINOPHILS PERCENT AUTO 1 % (0-6); Hematocrit 41.1 % (33.0-51.0); Hemoglobin 13.9 g/dL (11.5-16.0); IMMATURE GRAN ABSOLUTE AUTO 0.06 K/mm3 (0.00-0.10); IMMATURE GRAN PERCENT AUTO 1 % (0-1); LYMPHOCYTES ABSOLUTE AUTO 1.51 K/mm3 (0.84-5.20); LYMPHOCYTES PERCENT AUTO 20 % (21-46); MONOCYTES ABSOLUTE AUTO 0.48 K/mm3 (0.16-1.47); MONOCYTES PERCENT AUTO 6 % (4-13); Mean Corpuscular HGB 30.5 pg (26.0-34.0); Mean Corpuscular HGB Conc 33.8 g/dL (31.5-36.5); Mean Corpuscular Volume 90 fL (80-100); Mean Platelet Volume 9.5 fL (9.1-12.4); NEUTROPHILS ABSOLUTE AUTO 5.54 K/mm3 (1.96-9.15); NEUTROPHILS PERCENT AUTO 72 % (41-73); Platelet Count 442 K/mm3 (150-400); RDW Standard Deviation 42.5 fL (35.1-46.3); Red Blood Cell Count 4.56 M/mm3 (3.80-5.20); White Blood Cell Count 7.65 K/mm3 (4.00-11.30)
[2023-06-08 06:17] LABS: Bun/Creatinine Ratio 38.6 (12.0-20.0); Calcium, Blood 9.1 mg/dL (8.5-10.1); Creatinine, Blood 0.73 mg/dL (0.40-1.00); Potassium, Blood 3.9 mmol/L (3.5-5.5)
[2023-06-08 07:19] VITALS: BP 144/82
[2023-06-08 13:09] LABS: THYROXINE BINDING GLOBULIN 27 ug/mL (13-39)
[2023-06-08 15:57] VITALS: BP 157/92
--- NOTE | 2023-06-08 17:25 | NUR ---
PATIENT A/OX3-4, AWAKE THROUGHOUT THE SHIFT TODAY. REMAINS SOFT SPOKEN AND WITHDRAWN. ABLE TO ANSWER QUESTIONS APPROPRIATELY, BUT RESPONDS WITH ONE WORD ANSWERS. VSS, ON RA. DENIES ANY PAIN OR DISCOMFORT. CONTINUES TO HAVE A POOR APPEITE AND REFUSED LUNCH. DENIES ANY NAUSEA. BOWEL CARE STARTED, NO BM CHARTED SINCE 06/02. PUREWICK IN PLACE DUE TO INCONTINENCE. PATIENT CONTINUES ON TUBE FEEDS WITH A WATER BOLUS Q4 HOURS. WORKED WITH OT TODAY, NOT ABLE TO GET OOB. FAMILY VISITED BRIEFLY THIS AFTERNOON. NO NEW CONCERNS THIS SHIFT.
[2023-06-08 19:27] VITALS: BP 149/86
[2023-06-09 03:17] VITALS: BP 153/90
--- NOTE | 2023-06-09 06:02 | NUR ---
SHIFT SUMMARY 57 YR F ADMITTED ON 05/29/23 FOR ACUTE ENCEPHALOPATHY. FULL CODE. NO ACUTE CHANGES THIS SHIFT. PT HAS SLEPT FOR THIS ENTIRE SHIFT. TUBE FEEDING PER NG TUBE IS RUNNING CONTINUOUSLY WITH Q4 O2 FLUSH. PUREWIK IN PLACE AND DRAINING WELL.
[2023-06-09 07:38] VITALS: BP 164/90
[2023-06-09 15:16] VITALS: BP 137/84
--- NOTE | 2023-06-09 18:25 | NUR ---
PATIENT A/O X3-4. AWAKE THROUGHOUT THE SHIFT. EATING SMALL AMOUNTS OF MEALS TODAY WITH ENCOURAGEMENT AND ASSISTANCE. THIS EVENING DURING DINNER PATIENT VOMITTED AND THE DOBHOFF CAME UP. SPOKE WITH DR CABRAL AND ORDERS RECEIVED TO KEEP FEEDING TUBE OUT FOR NOW AND ENCOURAGE PO INTAKE. CBG'S CHANGED TO ACHS. PATIENT WORKED WITH PT/OT TODAY AND WAS ABLE TO STAND AT THE SIDE OF THE BED. PUREWICK IN PLACE DUE TO INCONTINENCE. PATIENT DID HAVE MEDIUM BM TODAY. REMAINS FLAT AND AND WITHDRAWN, ANSWERS WITH ONE WORD RESPONSES.
[2023-06-09 19:09] VITALS: BP 145/90
[2023-06-10 05:05] VITALS: BP 142/86
--- NOTE | 2023-06-10 05:24 | NUR ---
SHIFT SUMMARY: PT IS ADMITTED FOR ACUTE ENCEPHALOPATHY AND IS A FULL CODE. IS ALERT AND ABLE TO MAKE SOME NEEDS KNOWN. ABLE TO ANSWER YES OR NO QUESTIONS AND PROVIDE 1-3 WORD PHRASES AT TIMES. ADLs HAVE BEEN 1P THROUGH MOST OF SHIFT RESIDENT HAS NOT GOTTEN OUT OF BED. IV TO RIGHT WRIST IS PATENT WITH A DRESSING THAT IS CDI. PURE WICK IN PLACE.
[2023-06-10 07:58] VITALS: BP 141/84
[2023-06-10 16:47] VITALS: BP 141/83
--- NOTE | 2023-06-10 17:26 | NUR ---
PATIENT A/OX3-4, REMAINS VERY FLAT AND WITHDRAWN. DENIES ANY NAUSEA THIS SHIFT, BUT IS EATING VERY LITTLE. TURNING Q2 HOURS. WORKING WITH PT/OT, UNABLE TO STAND TODAY DUE TO BEING TOO TIRED. PATIENT SEEMS TO LACK MOTIVATION AND NEEDS A LOT OF ENCOURAGEMENT TO DO THINGS FOR HERSELF. FAMILY CAME FOR BREAKFAST AND BEFORE DINNER TO VISIT. INCONTINENT OF BOWEL AND BLADDER, PUREWICK IN PLACE. NO ACUTE CHANGES THIS SHIFT.
[2023-06-10 20:31] VITALS: BP 127/89
[2023-06-11 03:21] VITALS: BP 124/74
--- NOTE | 2023-06-11 05:21 | NUR ---
SHIFT SUMMARY: PT IS ADMITTED FOR ACUTE ENCEPHALOPATHY AND IS A FULL CODE. IS ALERT AND ABLE TO MAKE SOME NEEDS KNOWN. ABLE TO ANSWER QUESTIONS IN 1-3 WORD PHRASES AND YES AND NO. ADLs REMAIN THE SAME AT 1P MOSTLY THROUGH BED ACTIVITY UNABLE TO ACCESS ANYTHING OUT OF BED. DENIES PAIN OR DISCOMFORT WHEN ASKED. INCONT SO PURE WICK IS IN PLACE.
[2023-06-11 08:45] VITALS: BP 117/75
--- NOTE | 2023-06-11 14:37 | NUR ---
Case Conference Note Reviewed chart, discussed case with Primary RN Keysha and RN Carecoordinator. Pt showing improvement, Nilay out and is eating PO. Plan for Pt SNF upon acceptance. Palliative Care will remain available
[2023-06-11 16:41] VITALS: BP 106/68
--- NOTE | 2023-06-11 18:34 | NUR ---
SHIFT SUMMARY: AUNDREA IS A&OX1-2. VSS, NO ACUTE EVENTS THIS SHIFT. MEPILEX TO COCCYX CHANGED THIS SHIFT. SHE IS TOLERATING PO INTAKE WELL, REPORTS POOR APPETITE, ASPIRATION PRECAUTIONS FOLLOWED, UPDATED PRODUCTION TROUBLESHOOTER. TURNED AND REPOSITIONED, ENCOURAGED PT TO MOBILIZE MUCH POSSIBLE. PT WORKED WITH PT AND OT TODAY, EDUCATED PT ON BENEFITS OF BEING UP IN THE CHAIR FOR MEALS, PT REFUSED TODAY BUT STATED WILL THINK ABOUT IT. ATTENDS AND PUREWICK IN PLACE FOR INCONTINENCE. SHE IS LYING IN BED WITH THE CALL LIGHT IN REACH. WCTM UNTIL REPORT IS GIVEN TO MATH COACH RN.
[2023-06-11 20:47] VITALS: BP 113/66
--- NOTE | 2023-06-12 04:00 | NUR ---
SHIFT SUMMARY PT SLEEPING MUCH OF THE NIGHT. CALL LIGHT IS WITHIN PT REACH.
[2023-06-12 05:02] VITALS: BP 119/71
[2023-06-12 07:43] VITALS: BP 107/67
[2023-06-12 08:17] LABS: Albumin, Blood 2.9 g/dL (3.4-5.0); Albumin/Globulin Ratio 0.8 (0.8-1.8); Bilirubin, Total 0.5 mg/dL (0.1-1.0); Bun/Creatinine Ratio 39.4 (12.0-20.0); Calcium, Blood 9.1 mg/dL (8.5-10.1); Creatinine, Blood 0.74 mg/dL (0.40-1.00); Globulin, Blood 3.6 g/dL (2.2-4.0); Potassium, Blood 3.6 mmol/L (3.5-5.5); Total Protein, Blood 6.5 g/dL (6.4-8.2)
--- NOTE | 2023-06-12 09:00 | NUR ---
pt laying in bed with tv on she is slow to answer, but states she is doing ok, took po meds in applesauce without diff, lungs are clear dim in bases, resp even and unlaobored, no cough noted, on r/a, hrr, murmur noted, no edema noted ppp+1, cap refill <3sec vs stable, afebrile, iv site to right wrist, s.l. clear and patent, btx4, abd flat soft nontender, incont of urine/bowel briefs in place, ski has mepilex to right butt cheek otherwise c/w/d, looks like she has foot drop heel protectors in place, can wiggle toes, elma call light in reach.
--- NOTE | 2023-06-12 12:47 | NUR ---
senior case manager attempted to allow pt to feed herself, she is unable to lift her arms to her mouth. senior case manager feed entire meal. call light in reach.
[2023-06-12 16:42] VITALS: BP 123/65
--- NOTE | 2023-06-12 18:02 | NUR ---
pt had an uneventful day, no acute changes this shift. call light in reach.
[2023-06-12 20:03] VITALS: BP 122/65
--- NOTE | 2023-06-13 03:50 | NUR ---
SHIFT SUMMARY PT CALM AND COOPERATIVE WITH CARE. PT SEEMS TO BE MORE ALERT AND TALKATIVE THIS EVENING. PT STILL INCONTINENT OF URINE AND HAVING STOOL SMEARS. PT CHANGED SEVERAL TIMES THIS SHIFT. PT HAS CALL LIGHT WITHIN HER REACH.
[2023-06-13 04:10] VITALS: BP 131/72
[2023-06-13 07:48] VITALS: BP 132/77
--- NOTE | 2023-06-13 09:00 | NUR ---
pt laying in bed getting fed breakfast, a/ox2, pleasant and cooperative with care, follows commands well, has a very flat affect, lungs are clear t/o, resp even and unlabored, no cough noted, hrr, murmur noted, no edema noted, ppp+1, cap refill <3sec, vs stable, afebrile, btx4, had loose stools durring the night, held stool softender, briefs in place, skin c/w/d, legs are stiff, feet pointing downward, can wiggle toes, hands are a bit contracted and can't feed herself at this time, elma call light in reach.
--- NOTE | 2023-06-13 12:24 | NUR ---
pt was transfered to chair with two person assist to chair, when asked she said no, and no that she can't lift her arms to feed herself. Dr. Jenkins said she can, so she is in chair feeding herself this after noon. SPEAKING UNIT ASSEMBLER supervising lunch, call light in reach.
[2023-06-13 16:10] VITALS: BP 123/75
--- NOTE | 2023-06-13 18:47 | NUR ---
got pt to chair for dinner, she fed herself, did better with a sippy cup, has had several stools today, is now back in bed with family in visiting. no acute changes this shift. call light in reach.
[2023-06-13 19:58] VITALS: BP 117/75
--- NOTE | 2023-06-14 03:38 | NUR ---
SHIFT SUMMARY PT HAS HAD NO COMPLAINTS OR NEEDS SO FAR THIS SHIFT. PT CONTINUES TO BE INCONTINENT AND IS WEARING BRIEFS. PT HAS BEEN WORKING WITH PT/OT AND ACCORDING TO DAY SHIFT RN, PT IS ABLE TO LIFT HER ARMS ABOVE HER HEAD NOW. PT SHOULD ALSO BE TRYING TO FEED HERSELF, MUCH SHE CAN, TO BUILD UP STRENGTH FOR THAT. A FEEDER CAN STILL BE AVAILABLE TO HELP HER WHEN NECESSARY. PT IS STILL HAVING STOOL SMEARS, SO STOOL MEDICATIONS HAVE BEEN HELD. CALL LIGHT IS WITHIN HER REACH.
[2023-06-14 03:56] VITALS: BP 112/71
[2023-06-14 07:24] VITALS: BP 125/75
[2023-06-14 13:51] LABS: SARS-Cov-2 (COVID-19) PCR, MMC NEGATIVE (NEGATIVE)
[2023-06-14] MEDS ORDERED: FOLI1 PO (14:16)
[2023-06-14] MEDS ORDERED: DOCU100 PO (14:16)
[2023-06-14] MEDS ORDERED: ACET325 PO (14:16)
[2023-06-14] MEDS ORDERED: LISI20 PO (14:17)
--- NOTE | 2023-06-14 16:39 | NUR ---
DISCHARGE NOTE PT DISCHARGED TO [facility], REPORT GIVEN TO NURSE AT FACILITY. IV REMOVED. DISCHARGE PACKET PROVIDED TO THE SPARK PLUG ASSEMBLER ALONG WITH PERSONAL ITEMS.
== END 2023-06-14 16:36 | DRG 896 ==
LOC: ER 12:28 → MEDS 12:29
PROVIDERS: Emergency Medicine; Family Medicine; Internal Medicine; Physician Assistant; ADMIT Hospitalist
PROC: 009U3ZX Drainage of Spinal Canal, Percutaneous Approach, Diagnostic (ICD-10-PCS; principal; 2023-05-29)
PROC: 0DH67UZ Insertion of Feeding Device into Stomach, Via Natural or Artificial Opening (ICD-10-PCS; 2023-05-31)
PROC: 3E0G76Z Introduction of Nutritional Substance into Upper GI, Via Natural or Artificial Opening (ICD-10-PCS; 2023-05-31)
DX: F11.93 Opioid use, unspecified with withdrawal (principal); G92.8 Other toxic encephalopathy; L89.223 Pressure ulcer of left hip, stage 3; E87.0 Hyperosmolality and hypernatremia; M62.82 Rhabdomyolysis; N39.0 Urinary tract infection, site not specified; N17.9 Acute kidney failure, unspecified; R47.01 Aphasia; E87.1 Hypo-osmolality and hyponatremia; E03.9 Hypothyroidism, unspecified; I10 Essential (primary) hypertension; R13.10 Dysphagia, unspecified; F32.A Depression, unspecified; F41.9 Anxiety disorder, unspecified; E87.6 Hypokalemia; D69.6 Thrombocytopenia, unspecified; B96.20 Unspecified Escherichia coli [E. coli] as the cause of diseases classified elsewhere; G43.909 Migraine, unspecified, not intractable, without status migrainosus; M54.9 Dorsalgia, unspecified; G89.29 Other chronic pain; Z98.890 Other specified postprocedural states; R00.1 Bradycardia, unspecified; F10.90 Alcohol use, unspecified, uncomplicated; K21.9 Gastro-esophageal reflux disease without esophagitis; M24.552 Contracture, left hip; M24.551 Contracture, right hip; Y90.0 Blood alcohol level of less than 20 mg/100 ml; Z11.52 Encounter for screening for COVID-19; Z88.5 Allergy status to narcotic agent; Z91.018 Allergy to other foods; Z79.899 Other long term (current) drug therapy; Z79.890 Hormone replacement therapy; Z74.01 Bed confinement status
CPT/HCPCS: 36415; 51701; 62270; 70450; 70551; 71045; 80048; 80053; 80069; 81001; 82140; 82248; 82550; 82607; 82746; 82945; 82947; 83605; 83735; 84100; 84157; 84439; 84442; 84443; 84484; 85025; 85520; 85610; 85730; 86141; 86376; 86800; 87070; 87077; 87086; 87186; 87205; 87483; 89051; 92526; 92610; 93005; 93010; 93306; 94760; 94762; 95819; 96361; 96365; 96372; 96375; 97110; 97162; 97165; 97530; 97535; 99285-25; A9270; C9113; G0378; J0360; J0696; J1450; J1644; J1650; J1815; J2060; J2930; J3411; J3480; J7030; J7050; J7070; U0002

== ENCOUNTER → 2023-10-19 | Outpatient (CLI) | payer MEDICARE, OTHER ==
[~2023-10-19] MED LIST changes: +ACET325 PO; +DOCU100 PO; +FOLI1 PO; +LISI20 PO; +OMEP20ER PO
[2023-10-19 16:58] LABS: Candida Group, PCR NOT DETECTED (NOT DETECT); Candida glabrata-krusei, PCR NOT DETECTED (NOT DETECT)
[2023-10-19 17:01] LABS: Bacterial Vaginosis PCR Positive (NEGATIVE)
[2023-10-23 08:34] LABS: HPV HIGH RISK BY TMA Not Detected; HPV SOURCE Cervical
== END ==
LOC: LAB 14:24 → LAB SHORT 14:24
PROVIDERS: General Practice
DX: Z01.419 Encounter for gynecological examination (general) (routine) without abnormal findings (principal)
CPT/HCPCS: 87481; 87624; 87661; 87801; G0123

== ENCOUNTER → 2024-05-08 | Outpatient (CLI) | payer MEDICARE, OTHER ==
[2024-05-08 16:34] LABS: BASOPHILS ABSOLUTE AUTO 0.05 K/mm3 (0.00-0.23); BASOPHILS PERCENT AUTO 1 % (0-2); EOSINOPHILS ABSOLUTE AUTO 0.47 K/mm3 (0.00-0.68); EOSINOPHILS PERCENT AUTO 8 % (0-6); Hematocrit 37.5 % (33.0-51.0); Hemoglobin 12.6 g/dL (11.5-16.0); IMMATURE GRAN ABSOLUTE AUTO 0.01 K/mm3 (0.00-0.10); IMMATURE GRAN PERCENT AUTO 0 % (0-1); LYMPHOCYTES ABSOLUTE AUTO 1.59 K/mm3 (0.84-5.20); LYMPHOCYTES PERCENT AUTO 28 % (21-46); MONOCYTES ABSOLUTE AUTO 0.32 K/mm3 (0.16-1.47); MONOCYTES PERCENT AUTO 6 % (4-13); Mean Corpuscular HGB 30.8 pg (26.0-34.0); Mean Corpuscular HGB Conc 33.6 g/dL (31.5-36.5); Mean Corpuscular Volume 92 fL (80-100); Mean Platelet Volume 9.6 fL (9.1-12.4); NEUTROPHILS PERCENT AUTO 57 % (41-73); Platelet Count 347 K/mm3 (150-400); RDW Coefficient Variation 11.9 % (11.7-14.2); RDW Standard Deviation 39.6 fL (35.1-46.3); Red Blood Cell Count 4.09 M/mm3 (3.80-5.20); White Blood Cell Count 5.74 K/mm3 (4.00-11.30)
[2024-05-08 17:19] LABS: Albumin, Blood 3.8 g/dL (3.4-5.0); Albumin/Globulin Ratio 1.1 (0.8-1.8); Bilirubin, Total 0.4 mg/dL (0.1-1.0); Bun/Creatinine Ratio 20.7 (12.0-20.0); Calcium, Blood 9.1 mg/dL (8.5-10.1); Creatinine, Blood 1.11 mg/dL (0.40-1.00); Free Thyroxine 1.09 ng/dL (0.70-1.60); Globulin, Blood 3.6 g/dL (2.2-4.0); Potassium, Blood 3.9 mmol/L (3.5-5.5); Thyroid Stimulating Hormone 1.54 uIU/mL (0.360-4.800); Total Protein, Blood 7.4 g/dL (6.4-8.2)
[2024-05-09 17:43] LABS: THYROGLOBULIN ANTIBODY <0.9 IU/mL (0.0-4.0); THYROID PEROXIDASE (TPO) AB 0.7 IU/mL (0.0-9.0)
== END ==
LOC: LAB SHORT 15:03 → LAB 15:03
PROVIDERS: General Practice
DX: E03.9 Hypothyroidism, unspecified (principal); R63.5 Abnormal weight gain; R73.03 Prediabetes
CPT/HCPCS: 80053; 82533; 83036; 84439; 84443; 85025; 86376; 86800

== ENCOUNTER 2024-06-22 08:32 | Day surgery (SDC) | payer MEDICARE, OTHER ==
[~2024-06-22] VITALS: Ht 175.3 cm; Wt 98.6 kg
[2024-06-22] VITALS (17 sets, daily range): BP systolic 70–134; BP diastolic 50–90
[~2024-06-22 08:32] MED LIST changes: +HYDCHL25 PO; +Lactated Ringer's 1,000 ML IV SCH
[2024-06-22] MEDS ORDERED: propofoL 40 ML IV ONE (09:59)
--- NOTE | 2024-06-22 09:59 | NUR ---
06/22/24 0959 Vani Craig CONFIRMED AND REVIEWED H&P, MEDCICATIONS, ALLERGIES, MEDICAL HISTORY, RESPIRATORY HISTORY, VITAL SIGNS, 3-LEAD EKG, CONSENTS, AND PHYSICIAN ORDERS. PATIENT CONFIRMS NPO STATUS AND AGREES WITH SCHEDULED PROCEDURE. MONITOR INTACT WITH CONTINUOUS PULSE OXIMETRY, CAPNOGRAPHY, 3-LEAD EKG, INTERMITTENT BP. SUPPLEMENTAL O2 TO BE TITRATED THROUGHOUT PROCEDURE TO MAINTAIN O2 SATURATION ABOVE 90%. PATIENT DETERMINED TO BE ASA APPROPRIATE FOR PROPOFOL SEDATION PRIOR TO START OF PROCEDURE BY DR. JOHNSON
[2024-06-22] MEDS ORDERED: Midazolam HCl 1MG / ML 2ML Vial ONE (10:00)
--- NOTE | 2024-06-22 10:51 | NUR ---
Discharge instructions reviewed with patient. Patient verbalizes understanding. Copy given to patient to take home. Patient States Post-Procedure ride home has been arranged. Discharged via wheelchair to private car for ride home.
== END 2024-06-22 11:00 | disposition home or self-care (01) ==
LOC: ORSCMMR 08:32 → ORD 09:30 → ORSCMMR 11:00
PROVIDERS: Internal Medicine Gastroenterology
PROC: 0DBN8ZX Excision of Sigmoid Colon, Via Natural or Artificial Opening Endoscopic, Diagnostic (ICD-10-PCS; principal; 2024-06-22 09:30)
DX: Z12.11 Encounter for screening for malignant neoplasm of colon (principal); K63.5 Polyp of colon; K64.8 Other hemorrhoids; I10 Essential (primary) hypertension; Z79.899 Other long term (current) drug therapy
CPT/HCPCS: 88305; J2250; J2704; J7120

== ENCOUNTER → 2024-10-17 | Outpatient (CLI) | payer MEDICARE, OTHER ==
[~2024-10-17] MED LIST changes: -Lactated Ringer's 1,000 ML IV SCH
[2024-10-17 15:44] LABS: Free Thyroxine 1.07 ng/dL (0.70-1.60)
[2024-10-17 15:50] LABS: Thyroid Stimulating Hormone 1.13 uIU/mL (0.360-4.800)
== END ==
LOC: LAB 14:19 → LAB SHORT 14:19
PROVIDERS: General Practice
DX: E03.9 Hypothyroidism, unspecified (principal)
CPT/HCPCS: 84439; 84443